=== PATIENT | male | born 2000 | race Caucasian/White ===

== ENCOUNTER 2019-03-13 21:25 | Emergency (ER) | payer BC ==
[2019-03-13] MEDS ORDERED: HYDROmorphone 0.5 MG/0.5 ML Syringe IVPUSH ONE (21:59)
[2019-03-13] MEDS ORDERED: Sodium Chloride 0.9% 10 ML Syringe FLUSH PRN (21:59)
[2019-03-13] MEDS ORDERED: Sodium Chloride 0.9% 1,000 ML IV SCH ×2 (22:00→23:30)
--- NOTE | 2019-03-14 00:39 | EDM.PDOC ---
ED HPI GENERAL MEDICAL PROBLEM - General Chief Complaint: ENT Problem Stated Complaint: TONSIL POST OP COMPLICATIONS Time Seen by Provider: 03/13/19 21:53 Source of Information: Reports: Patient, RN Notes Reviewed - History of Present Illness INITIAL COMMENTS - FREE TEXT/NARRATIVE: 18-year-old male had tonsils and adenoids removed by one of the surgeons in [place] 6 days ago. The last few days he has had difficulty drinking, getting adequate fluid intake. Mouth is getting to be very dry, he is weak, dizzy and somewhat lightheaded when standing or walking. He states his urine is very concentrated and is concerned that he is getting dehydrated. He also states when "spitting there was a very small amount of blood" Throat Pain Score (Numeric/FACES): 5 - Related Data Allergies Allergy/AdvReac Type Severity Reaction Status Date / Time No Known Allergies Allergy Verified 03/13/19 21:38 Home Meds: Home Meds Hydrocodone/Acetaminophen [Hydrocodon-Acetaminophen 5-325] 1 tab PO Q6H PRN [History] Past Medical History - Past Surgical History HEENT Surgical History: Reports: Myringotomy w Tube(s), Tonsillectomy Musculoskeletal Surgical History: Reports: Other (See Below) Other Musculoskeletal Surgeries/Procedures:: meniscus repair Social & Family History - Tobacco Use Smoking Status *Q: Never Smoker Second Hand Smoke Exposure: No - Caffeine Use Caffeine Use: Reports: None - Recreational Drug Use Recreational Drug Use: No ED ROS ENT - Review of Systems Review Of Systems: See Below Constitutional: Denies: Fever, Chills HEENT: Reports: Throat Pain Respiratory: Denies: Shortness of Breath Cardiovascular: Denies: Chest Pain GI/Abdominal: Denies: Nausea, Vomiting Musculoskeletal: Reports: No Symptoms Skin: Reports: No Symptoms Neurological: Reports: Dizziness ED EXAM, ENT - Physical Exam Exam: See Below General Appearance: Alert, Moderate Distress Eye Exam: Bilateral Eye: PERRL Mouth/Throat: Other (There are scabs over the area of his posterior throat, no blood or active bleeding at this time, oral mucosa is somewhat dry) Head: Atraumatic. No: Facial Swelling Neck: Supple, Lymphadenopathy (L), Lymphadenopathy (R) Respiratory/Chest: No Respiratory Distress, Lungs Clear, Normal Breath Sounds Cardiovascular: Regular Rate, Rhythm Extremities: Normal Inspection Neurological: Alert, Oriented, No Motor/Sensory Deficits Skin: Warm, Dry, Normal Color Course - Vital Signs Last Recorded V/S: Last Vital Signs Temp 97 F 03/13/19 21:36 Pulse 85 03/13/19 21:36 Resp 16 03/13/19 21:36 BP 132/93 H 03/13/19 21:36 Pulse Ox 95 03/13/19 21:36 Orthostatic Blood Pressure [ 120/83 Standing] Orthostatic Blood Pressure [ 134/84 Sitting] Orthostatic Blood Pressure [ 136/84 Supine] - Orders/Labs/Meds Orders: Active Orders 24 hr Category Date Time Status Orthostatic Vital Signs [RC] ASDIRECTED Care 03/13/19 21:41 Active Peripheral IV Care [RC] . DIRECTED Care 03/13/19 22:00 Active Peripheral IV Insertion Adult [OM.PC] Stat Oth 03/13/19 21:59 Ordered Meds: Medications Discontinued Medications Generic Name Dose Route Start Last Admin Trade Name Freq PRN Reason Stop Dose Admin Hydromorphone HCl 0.5 mg 03/13/19 21:59 03/13/19 22:08 Dilaudid IVPUSH 03/13/19 22:00 0.5 mg ONETIME ONE Administration Sodium Chloride 1,000 mls @ 999 mls/hr 03/13/19 22:00 03/13/19 22:07 Normal Saline IV 999 mls/hr ONETIME NHUNG Administration Sodium Chloride 1,000 mls @ 999 mls/hr 03/13/19 23:30 03/13/19 23:27 Normal Saline IV 999 mls/hr ONETIME NHUNG Administration Sodium Chloride 10 ml 03/13/19 21:59 03/13/19 22:10 Saline Flush FLUSH 10 ml ASDIRECTED PRN Administration Keep Vein Open - Re-Assessments/Exams Free Text/Narrative Re-Assessment/Exam: 03/14/19 04:42 We did give patient 2 L of normal saline IV and also 0.5 mg Dilaudid IV. At time of discharge he felt "much better". No bleeding while here in the ED. He felt up to going home at time of discharge. Discharge instructions as documented. Departure - Departure Time of Disposition: 00:38 Disposition: Home, Self-Care 01 Clinical Impression: Status post tonsillectomy and adenoidectomy, Dehydration - Discharge Information Instructions: Dehydration, Adult, [id number] Referrals: Terry Ramirez MD [Primary Care Provider] - Forms: ED Department Discharge Additional Instructions: Try hard to drink plenty of fluids, you may safely take Tylenol every 6-8 hours up to 3 doses daily. Follow-up with your regular provider or ENT surgeon as needed, return to ED as needed if symptoms worsening in any way. - My Orders Last 24 Hours: My Active Orders 03/13/19 21:41 Orthostatic Vital Signs [RC] ASDIRECTED 03/13/19 21:59 Peripheral IV Insertion Adult [OM.PC] Stat 03/13/19 22:00 Peripheral IV Care [RC] . DIRECTED - Assessment/Plan Last 24 Hours: My Active Orders 03/13/19 21:41 Orthostatic Vital Signs [RC] ASDIRECTED 03/13/19 21:59 Peripheral IV Insertion Adult [OM.PC] Stat 03/13/19 22:00 Peripheral IV Care [RC] . DIRECTED
== END 2019-03-14 00:45 | disposition home or self-care (01) ==
LOC: JD.ED 21:25
DX: E86.0 Dehydration (principal); Z90.89 Acquired absence of other organs
CPT/HCPCS: 96361; 96374; 99282; J1170; J7040; 99284

== ENCOUNTER 2019-03-14 15:28 | Emergency (ER) | payer BC ==
--- NOTE | 2019-03-14 16:21 | EDM.PDOC ---
ED HPI GENERAL MEDICAL PROBLEM - General Chief Complaint: ENT Problem Stated Complaint: TONSILECTOMY/COUGHING UP BLOOD Time Seen by Provider: 03/14/19 15:57 Source of Information: Reports: Patient History Limitations: Reports: No Limitations - History of Present Illness INITIAL COMMENTS - FREE TEXT/NARRATIVE: 18 yo M comes in today for coughing up blood s/p tonsillectomy and adenoidectomy last in [place]. He was seen here last night in the ED for similar complaint and dehydration, but states it got worse today. States he was coughing up "bloody snot" that turned into his mouth being full of blood and "chunks" of clots for 15 minutes. It has since stopped but scared him. He is drinking OK, but has not eaten d/t pain. He denies any dizziness, lightheadedness, N/V/D, blood in stool or urine. No other complaints at this time. PCP is Dr. Luo. ENT doctor is Dr. George Pisano at [facility]. Throat Pain Score (Numeric/FACES): 6 - Related Data Allergies Allergy/AdvReac Type Severity Reaction Status Date / Time No Known Allergies Allergy Verified 03/13/19 21:38 Home Meds: Home Meds Hydrocodone/Acetaminophen [Hydrocodon-Acetaminophen 5-325] 1 tab PO Q6H PRN [History] Past Medical History - Past Surgical History HEENT Surgical History: Reports: Myringotomy w Tube(s), Tonsillectomy Musculoskeletal Surgical History: Reports: Other (See Below) Other Musculoskeletal Surgeries/Procedures:: meniscus repair Social & Family History - Tobacco Use Smoking Status *Q: Never Smoker - Caffeine Use Caffeine Use: Reports: None - Recreational Drug Use Recreational Drug Use: No ED ROS ENT - Review of Systems Review Of Systems: ROS reveals no pertinent complaints other than HPI. ED EXAM, ENT - Physical Exam Exam: See Below Exam Limited By: No Limitations General Appearance: Alert, WD/WN, No Apparent Distress Eye Exam: Bilateral Eye: EOMI, Normal Inspection, PERRL Mouth/Throat: Normal Inspection, Normal Gums, Normal Lips, Normal Teeth, Throat Pain, Other (erythema and scarring from procedure in oropharynx, no active bleeding) Neck: Normal Inspection, Supple, Non-Tender, Full Range of Motion Respiratory/Chest: No Respiratory Distress, Lungs Clear, Normal Breath Sounds, No Accessory Muscle Use, Chest Non-Tender Cardiovascular: Normal Peripheral Pulses, Regular Rate, Rhythm GI/Abdominal: Normal Bowel Sounds, Soft, Non-Tender, No Organomegaly, No Distention, No Abnormal Bruit, No Mass Neurological: Alert, Oriented, CN II-XII Intact, Normal Cognition, Normal Gait, Normal Reflexes, No Motor/Sensory Deficits Psychiatric: Normal Affect, Normal Mood Skin: Warm, Dry, Intact, Normal Color, No Rash Course - Vital Signs Last Recorded V/S: Last Vital Signs Temp 97.9 F 03/14/19 15:56 Pulse 79 03/14/19 15:56 Resp 17 03/14/19 15:56 BP 151/89 H 03/14/19 15:56 Pulse Ox 96 03/14/19 15:56 Departure - Departure Time of Disposition: 16:26 Disposition: Home, Self-Care 01 Condition: Good Clinical Impression: Status post tonsillectomy and adenoidectomy, Hemoptysis - Discharge Information *PRESCRIPTION DRUG MONITORING PROGRAM REVIEWED*: Not Applicable *COPY OF PRESCRIPTION DRUG MONITORING REPORT IN PATIENT MINI: Not Applicable Instructions: Hemoptysis, [id number] Referrals: Terry Ramirez MD [Primary Care Provider] - Forms: ED Department Discharge Additional Instructions: You were seen in the ED today for coughing up blood after having tonsillectomy and adenoidectomy last week. At this time, you are no longer actively bleeding and you seem to be stable per your history and physical exam. Recommend following up with your general surgeon, Dr. George Pisano, and to call his office with future questions regarding your symptoms ([phone]). Please return to ED if new or worsening symptoms.
== END 2019-03-14 16:39 | disposition home or self-care (01) ==
LOC: JD.ED 15:28
DX: R04.2 Hemoptysis (principal); Z90.89 Acquired absence of other organs
CPT/HCPCS: 99281; 99282

== ENCOUNTER 2020-06-24 20:32 | Emergency (ER) | payer BC ==
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
--- NOTE | 2020-06-25 07:03 | CR ---
Right shoulder: 3 views of the right shoulder were obtained. Comparison: No previous right shoulder imaging. No fracture is appreciated. Glenohumeral joint and acromioclavicular joint appears within normal limits. Scapula appears intact as seen on the Y scapula view. Impression: 1. Nothing acute is seen on 3 view right shoulder study. Diagnostic code #1 This report was dictated in MDT
--- NOTE | 2020-06-25 07:03 | CR ---
Right humerus: 2 views of the right humerus were obtained. Comparison: No prior right humerus exam. No discrete fracture or other bony abnormality is appreciated. Impression: 1. No abnormality is appreciated on 2 view right humerus exam. Diagnostic code #1 This report was dictated in MDT
== END 2020-06-24 22:13 | disposition home or self-care (01) ==
LOC: JD.ED 20:32
DX: S40.011A Contusion of right shoulder, initial encounter (principal); V86.69XA Passenger of other special all-terrain or other off-road motor vehicle injured in nontraffic accident, initial encounter
CPT/HCPCS: 73030-26-RT; 73030-RT; 73060-26-RT; 73060-RT; 99282; 99284-25